=== PATIENT | female | born 1925 | race Caucasian/White ===

== ENCOUNTER 2016-11-14 04:17 | Emergency (ER) | payer MEDICARE, OTHER ==
[2016-11-14 05:00] LABS: BASO % 0.9 % (0-6); EOS % 2.1 % (0-6); GRAN % 49.2 % (47-80); HEMATOCRIT 40.4 % (35.0-47.0); HEMOGLOBIN 13.1 gm/dl (11.6-16.0); LYMPH % 35.7 % (16-45); MEAN CELL VOLUME 94.6 fl (81-97); MEAN CORPUSCULAR HEMOGLOBIN 30.7 pg (27-33); MEAN CORPUSCULAR HGB CONC 32.4 g/dl (32-36); MONO % 12.1 % (0-9); PLATELET COUNT 123 K/uL (130-400); RED BLOOD COUNT 4.27 M/uL (3.80-5.40); RED CELL DISTRIBUTION WIDTH 13.7 % (11.5-14.5); WHITE BLOOD COUNT W/O DIFF 3.4 K/uL (4.2-12.2)
[2016-11-14 05:11] LABS: ALB/GLOB RATIO 1.4 (1.1-1.8); ALBUMIN 4.4 gm/dL (3.5-5.0); ALKALINE PHOSPHATASE 94 U/L (38-126); ALT/SGPT 38 U/L (9-52); ANION GAP 12.1 (7-16); AST/SGOT 61 U/L (14-36); BILIRUBIN,TOTAL 1.52 mg/dL (0.2-1.3); BLOOD UREA NITROGEN 20 mg/dL (7-17); CARBON DIOXIDE 20.9 mmol/L (22-30); CREATININE 0.9 mg/dL (0.52-1.04); EST GLOMERULAR FILTRATION RATE > 60 ml/min; GLUCOSE,RANDOM 88 mg/dL (70-110); INR 2.94; PROTHROMBIN TIME (PATIENT) 32.1 SECONDS (9.5-12.1); TOTAL PROTEIN 7.6 gm/dL (6.3-8.2)
--- NOTE | 2016-11-14 05:13 | Emergency Department Record ---
History of Present Illness - General Chief Complaint: Dizziness Stated Complaint: DIZZINESS Time Seen by Provider: 11/14/16 04:24 Source: Patient, Family, EMS Mode of Arrival: EMS Limitations: No limitations - History of Present Illness Initial Comments: pt woke up and couldnt keep her balance. she kept falling backwards and the room was spinning and she felt 'off'. no focal weakness. she vomited once. MD Complaint: Dizziness, Difficulty walking Onset/Timin -: Hour(s) Timing: Awoke with symptoms Description: Difficulty walking, Lightheadedness, Nausea History of Same: Yes Severity: Mild Improves With: Rest Worsens With: Nothing Associated Symptoms: Denies other symptoms - [place] Coma Scale Eye Response: (4) Open spontaneously Motor Response: (5) Localizes to pain Verbal Response: (5) Oriented Sydni Total: 14 - Symptoms of Stroke Symptoms of stroke: Dizziness, Unsteady When Walking, Vertigo - Related Data Home Medications Medication Instructions Recorded Confirmed Last Taken Acetaminophen/Diphenhydramine 1 each PO QHS 11/14/16 11/14/16 Unknown [Tylenol Pm Ex-Strength Caplet] Calcium Carbonate 600 mg PO DAILY 11/14/16 11/14/16 Unknown Fluticasone/Salmeterol 250/50 1 each IH Q12H 11/14/16 11/14/16 Unknown [Advair 250/50] Furosemide [Lasix] 20 mg PO DAILY 11/14/16 11/14/16 Unknown Glimepiride [Amaryl] 2 mg PO DAILY 11/14/16 11/14/16 Unknown L-Thyroxine Na 50 mcg PO DAILY 11/14/16 11/14/16 Unknown Latanoprost 0.005% Opth Yudi 2.5 ml OP DAILY 11/14/16 11/14/16 Unknown [Xalatan] Metoprolol Tartrate [Metoprolol 25 mg PO DAILY 11/14/16 11/14/16 Unknown Tartrate] Multivitamin [Multi-Vitamin Daily] 1 each PO DAILY 11/14/16 11/14/16 Unknown [place] 3,6,9 Combination No.7 92 mg PO QHS 11/14/16 11/14/16 Unknown [[place] Dha] Pravastatin Sodium [Pravachol] 40 mg PO DAILY 11/14/16 11/14/16 Unknown Warfarin Sodium [Coumadin] 4 mg PO DAILY 11/14/16 11/14/16 Unknown Previous Rx's Medication Instructions Recorded Meclizine HCl [Antivert] 12.5 mg PO BID #10 tab 11/14/16 Allergies Allergy/AdvReac Type Severity Reaction Status Date / Time codeine Allergy Unknown "doesn't Verified 11/14/16 06:32 metaboize it. caused coma." latex Allergy Unknown RASH Verified 11/14/16 04:35 morphine Allergy Unknown "doesn't Verified 11/14/16 06:32 metabolize it. caused coma." Nitrofuran Analogues Allergy Unknown RASH Verified 11/14/16 04:35 nitrofurantoin Allergy Unknown RASH Unverified 11/14/16 04:35 Sulfa (Sulfonamide Allergy Unknown HIVES Unverified 11/14/16 04:35 Antibiotics) sulfacetamide Allergy Unknown HIVES Unverified 11/14/16 04:35 Travel Screening - Travel/Exposure Within Last 30 Days Have you traveled within the last 30 days?: No - Travel/Exposure Within Last Year Have you traveled outside the [place] in the last year?: No - Additonal Travel Details Have you been exposed to anyone with a communicable illness?: No - Travel Symptoms Symptom Screening: None Review of Systems Reviewed: No additional complaints except as noted below Constitutional: Reports: As per HPI. Denies: Chills, Fever, Malaise, Night sweats, Weakness, Weight change Eyes: Reports: As per HPI. Denies: Eye discharge, Eye pain, Photophobia, Vision change ENT: Reports: As per HPI. Denies: Congestion, Dental pain, Ear pain, Epistaxis , Hearing loss, Throat pain Respiratory: Reports: As per HPI. Denies: Cough, Dyspnea, Hemoptysis, Stridor, Wheezes Cardiovascular: Reports: As per HPI. Denies: Arrhythmia, Chest pain, Dyspnea on exertion, Edema, Murmurs, Orthopnea, Palpitations, Paroxysmal nocturnal dyspnea, Rheumatic Fever, Syncope Endocrine: Reports: As per HPI. Denies: Fatigue, Heat or cold intolerance, Polydipsia, Polyuria Gastrointestinal: Reports: As per HPI. Denies: Abdominal pain, Constipation, Diarrhea, Hematemesis, Hematochezia, Melena, Nausea, Vomiting Genitourinary: Reports: As per HPI. Denies: Abnormal menses, Discharge, Dyspareunia, Dysuria, Frequency, Hematuria, Incontinence, Retention, Urgency Musculoskeletal: Reports: As per HPI. Denies: Arthralgia, Back pain, Gout, Joint swelling, Myalgia, Neck pain Skin: Reports: As per HPI. Denies: Bruising, Change in color, Change in hair/ nails, Lesions, Pruritus, Rash Neurological: Reports: As per HPI. Denies: Abnormal gait, Confusion, Headache, Numbness, Paresthesias, Seizure, Tingling, Tremors, Vertigo, Weakness Psychiatric: Reports: As per HPI. Denies: Anxiety, Auditory hallucinations, Depression, Homicidal thoughts, Suicidal thoughts, Visual hallucinations Hematological/Lymphatic: Reports: As per HPI. Denies: Anemia, Blood Clots, Easy bleeding, Easy bruising, Swollen glands Past Medical History - SOCIAL HISTORY Smoking Status: Never smoker Alcohol Use: None Drug Use: None - RESPIRATORY Hx Respiratory Disorders: Yes Hx Sleep Apnea: Yes Hx of CPAP: Yes - CARDIOVASCULAR Hx Cardio Disorders: Yes Comment:: a-fib. 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 negative: External canal tenderness Nasal Exam: Normal inspection. negative: Discharge, Sinus tenderness Mouth exam: Normal external inspection, Tongue normal Teeth exam: Normal inspection. negative: Dental caries Throat exam: Normal inspection. negative: Tonsillar erythema, Tonsillar exudate - Neck Neck exam: Normal inspection, Full ROM. negative: Tenderness - Respiratory Respiratory exam: Normal lung sounds bilaterally. negative: Respiratory distress - Cardiovascular Cardiovascular Exam: Regular rate, Normal rhythm, Normal heart sounds - GI/Abdominal GI/Abdominal exam: Soft, Normal bowel sounds. negative: Tenderness - Rectal Rectal exam: Deferred - exam: Deferred - Extremities Extremities exam: Normal inspection, Full ROM, Normal capillary refill. negative: Tenderness - Back Back exam: Reports: Normal inspection, Full ROM. Denies: Muscle spasm, Rash noted, Tenderness - Neurological Neurological exam: Alert, CN II-XII intact, Normal gait, Oriented X3 - Psychiatric Psychiatric exam: Normal affect, Normal mood - Skin Skin exam: Dry, Intact, Normal color, Warm Course Vital Signs 11/14/16 04:23 Temperature 97.9 F Pulse Rate 68 Respiratory 20 Rate Blood Pressure 153/75 Pulse Ox 98 - Reevaluation(s) Reevaluation #1: 11/14/16 06:55 pt is doing much better. able to ambulate in her normal manner and even did a few dance steps. Medical Decision Making - Lab Data Result diagrams: 11/14/16 04:53 11/14/16 04:53 Lab Results 11/14/16 Range/Units 04:53 WBC 3.4 L (4.2-12.2) K/uL RBC 4.27 (3.80-5.40) M/uL Hgb 13.1 (11.6-16.0) gm/dl Hct 40.4 (35.0-47.0) % MCV 94.6 (81-97) fl MCH 30.7 (27-33) pg MCHC 32.4 (32-36) g/dl RDW 13.7 (11.5-14.5) % Plt Count 123 L (130-400) K/uL MPV 11.0 H (7.4-10.4) fl Gran % 49.2 (47-80) % Lymphocytes % 35.7 (16-45) % Monocytes % 12.1 H (0-9) % Eosinophils % 2.1 (0-6) % Basophils % 0.9 (0-6) % Disposition Disposition: Discharge Clinical Impression: Vertigo Disposition: Home, Self-Care Condition: (1) Good Instructions: Vertigo (ED) Additional Instructions: follow up with family doctor. return sooner if worse. use walker Prescriptions: Meclizine HCl [Antivert] 12.5 mg PO BID #10 tab Forms: Patient Portal Access Quality - Quality Measures Quality Measures: N/A - Blood Pressure Screening Blood Pressure Classification: Hypertensive Reading Systolic Measurement: 153 Diastolic Measurement: 75 Screening for High Blood Pressure: < First Hypertensive BP, F/U Documented > [ [id number]] First Hypertensive Follow-up Interventions: Follow-up with rescreen GT 1 day and LT 4 weeks.
[2016-11-14 06:01] LABS: URINE APPEARANCE CLEAR; URINE BILIRUBIN NEGATIVE (NEGATIVE); URINE BLOOD NEGATIVE (NEGATIVE); URINE COLOR YELLOW; URINE GLUCOSE (UA) NEGATIVE (NEGATIVE); URINE KETONE NEGATIVE (NEGATIVE); URINE LEUKOCYTE ESTERASE SMALL (NEGATIVE); URINE NITRITE NEGATIVE (NEGATIVE); URINE PROTEIN NEGATIVE (NEGATIVE); URINE UROBILINOGEN 0.2 E.U./dL (0.20 - 1.00)
[2016-11-14 06:11] LABS: URINE BACTERIA NONE SEEN; URINE EPITHELIAL CELLS 0 - 2 (FEW); URINE RBC 0 - 2 (NONE SEEN); URINE WBC 0 - 2 (0-2/hpf)
[2016-11-14] MEDS ORDERED: SODIUM CHLORIDE 0.9% 500 ML IV SCH (06:15)
[2016-11-14] MEDS ORDERED: MECLIZINE 25 MG TABLET PO ONE (06:17)
--- NOTE | 2016-11-14 13:32 | CT SCAN REPORT ---
EXAM: CT OF THE BRAIN HISTORY: DIZZINESS. TECHNIQUE: CT of the brain without contrast was obtained. Comparison: None. FINDINGS: The globes are intact. The paranasal sinuses and mastoid air cells are unremarkable. No displaced or depressed skull fracture. No intra or extraaxial hemorrhage. CT is limited for the evaluation of acute infarct. There is no CT evidence for large or territorial acute infarct. No mass or midline shift. Diffuse atrophy. Hypodensities in the periventricular and subcortical white matter, consistent with sequelae of small vessel ischemic change. IMPRESSION: NEGATIVE FOR ACUTE INTRACRANIAL ABNORMALITY. ATROPHY. SMALL VESSEL ISCHEMIC CHANGE. JOB NUMBER: [id number] MTDD
== END 2016-11-14 07:15 | disposition home or self-care (01) ==
LOC: ER 04:17
DX: R42 Dizziness and giddiness (principal); R11.12 Projectile vomiting; R26.2 Difficulty in walking, not elsewhere classified; I48.91 Unspecified atrial fibrillation; Z79.01 Long term (current) use of anticoagulants
CPT/HCPCS: 70450; 80053; 81001; 85025; 85610; 93005; 93010; 99284